=== PATIENT | female | born 1985 | race Caucasian/White ===

== ENCOUNTER 2019-08-15 07:31 | Outpatient (CLI) | payer MEDICARE, OTHER | END 2019-08-15 07:32 | disposition short-term general hospital (02) | LOC: EMS 07:31 | PROVIDERS: ATTEND Surgery | DX: R20.0 Anesthesia of skin (principal); R06.02 Shortness of breath; R07.9 Chest pain, unspecified | CPT/HCPCS: A0425; A0429; A0888 ==